=== PATIENT | male | born 1990 | race Caucasian/White ===

== ENCOUNTER 2018-03-21 05:56 | Inpatient (IN) | payer OTHER ==
[~2018-03-21] VITALS: Ht 170.2 cm; Wt 85.9 kg
[~2018-03-21 05:56] MED LIST: MOTRIN800 MG PO
[2018-03-21 05:59] VITALS: Ht 170.2 cm; Wt 85.9 kg
[2018-03-21 06:41] LABS: BASOPHIL % 0.5 % (0-2); PLATELET COUNT 304 x10^3mcL (130-400)
[2018-03-21 07:11] LABS: CALCIUM 9.5 mg/dL (8.5-10.1); CARBON DIOXIDE 20.2 mmol/L (21-32); CHLORIDE SERUM 102 mmol/L (98-107); CREATININE SERUM 1.1 mg/dL (0.7-1.3); GFR1 > 60 mL/min; GLUCOSE SERUM 109 mg/dL (74-106); POTASSIUM SERUM 3.2 mmol/L (3.5-5.1); SODIUM SERUM 134 mmol/L (136-145)
[2018-03-21 07:15] LABS: ALBUMIN 4.4 g/dL (3.4-5.0); ALKALINE PHOSPHATASE 82 U/L (46-116); ALT/SGPT 29 U/L (16-63); AST/SGOT 14 U/L (15-37); BILIRUBIN TOTAL 0.63 mg/dL (0.20-1.00)
[2018-03-21 10:02] LABS: AMPHETAMINE QUAL UR NONE DETECTED (See below)
[2018-03-21 12:08] VITALS: BP 118/62
[2018-03-21 18:06] VITALS: BP 110/52
[2018-03-21 20:29] VITALS: BP 113/56
[2018-03-22 05:47] VITALS: BP 124/73
[2018-03-22 06:18] LABS: CALCIUM 9.1 mg/dL (8.5-10.1); CARBON DIOXIDE 27.9 mmol/L (21-32); CHLORIDE SERUM 104 mmol/L (98-107); CREATININE SERUM 0.9 mg/dL (0.7-1.3); GFR1 > 60 mL/min; GLUCOSE SERUM 68 mg/dL (74-106); POTASSIUM SERUM 4.3 mmol/L (3.5-5.1); SODIUM SERUM 139 mmol/L (136-145)
[2018-03-22 06:21] LABS: BASOPHIL % 0.2 % (0-2); PLATELET COUNT 263 x10^3mcL (130-400); RED CELL DISTRIBUTION WIDTH 12.1 % (11.5-14.5)
[2018-03-22 09:18] VITALS: BP 103/55
[2018-03-22 10:40] VITALS: BP 103/55
== END 2018-03-22 11:46 | disposition home or self-care (01) | DRG 897 ==
LOC: ED 05:56 → DU 10:38
PROVIDERS: Emergency Medicine; Internal Medicine
DX: F14.10 Cocaine abuse, uncomplicated (principal); F12.10 Cannabis abuse, uncomplicated; E87.6 Hypokalemia; I10 Essential (primary) hypertension; Z68.29 Body mass index [BMI] 29.0-29.9, adult
CPT/HCPCS: 83880; G0480; J1644; J1885; J2060; J3480; J7030; Q0092